=== PATIENT | female | born 1980 | race Caucasian/White ===

== ENCOUNTER 2017-03-24 04:14 | Day surgery (SDC) | payer BC ==
--- NOTE | ~2017-03-24 | OP ---
Record Of Operation [facility] [address] [place]. 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 POSTOPERATIVE DIAGNOSIS: C6-7 cord compression with left upper extremity severe radiculopathy. PROCEDURE: 1. C6-7 total disk replacement. 2. Use of the microscope. SURGEON: Maikol Lacey MD. FLUIDS: Approximately 1200 mL LR. ESTIMATED BLOOD LOSS: 10 mL. DRAIN: One drain. COMPLICATIONS: None. IMPLANTS: Medtronic. PREOPERATIVE HISTORY: This is a very friendly female who reports significant radiating pain into the left shoulder and down the arm consistent with radiculopathy. We discussed the pros and cons of surgery. We discussed the rates of success versus failure to decrease neck and arm pain respectively. She was with some neck pain, but predominantly radiculopathy. DESCRIPTION OF PROCEDURE: After informed consent was obtained, the patient was brought to the operating room at her request. General anesthesia achieved. She was placed in the supine position, and the neck was prepped and draped in a sterile fashion. The incision was then made and the retropharyngeal approach performed to C6-7. The subperiosteal exposure was completed at C6-7 and the proper level radiographically confirmed. The microscope was then brought into place, and under microscopic visualization, the diskectomy was performed and the endplates prepared with the curettes and the high-speed bur and the Kerrison rongeurs. Parallel endplates were then made according to the surgical technique for this Medtronic disk replacement. The rent was then identified in the posterior longitudinal ligament and the canal then explored and several large fragments of disk identified and removed. The cord and nerve roots were now well decompressed under microscopic visualization. Next, the Medtronic Prestige LP implant was then placed. This was done under fluoroscopic technique following the trialing under fluoroscopic guidance. Record Of Operation [facility] [address] [place]. [address] NAME: ALIYA FUNEZ : 78 STATUS : DIS Antonino PAT#: [id number] AGE: 36 ADM/REG DATE : 03/24/17 MR#: [id number] REPORT SERV DATE: 03/27/17 DICTATED BY: MAIKOL LACEY II DATE: 03/27/17 REPORT STATUS : Draft TRANSCRIBED BY: ROME DATE: 03/27/17 At this point, the device was well secured. Final imaging confirmed acceptable placement of the disk replacement system. Irrigation was performed followed by placement of a drain since she was staying overnight for observation. Standard closure was performed, and the patient was then extubated and transferred to PACU in stable condition. BARRIE/ROME Maikol Lacey II, M.D. / [id number] CC: Keisha Chu II, M.D.
[~2017-03-24 04:14] MED LIST: AUG500 PO; CELEXA10 PO; PERCOCET1 TA4 PO; PR12.5 PO; T PO
[2017-03-25] MEDS ORDERED: PCET PO ×2 (09:53→09:54)
[2017-03-25] MEDS ORDERED: V2 PO (09:53)
== END 2017-03-25 11:00 | disposition home or self-care (01) ==
LOC: SDC 04:14 → SDC/OF 08:17 → 1SO 13:11
PROVIDERS: Orthopaedic Surgery
PROC: 0RT30ZZ Resection of Cervical Vertebral Disc, Open Approach (ICD-10-PCS; 2017-03-24)
PROC: 0RU30JZ Supplement Cervical Vertebral Disc with Synthetic Substitute, Open Approach (ICD-10-PCS; 2017-03-24)
PROC: 00NW0ZZ Release Cervical Spinal Cord, Open Approach (ICD-10-PCS; principal; 2017-03-24 05:30)
PROC: 01N10ZZ Release Cervical Nerve, Open Approach (ICD-10-PCS; 2017-03-24 05:30)
DX: M50.023 Cervical disc disorder at C6-C7 level with myelopathy (principal); M54.12 Radiculopathy, cervical region; Z90.49 Acquired absence of other specified parts of digestive tract; Z90.89 Acquired absence of other organs; Z88.1 Allergy status to other antibiotic agents
CPT/HCPCS: 82962; 84703; 87641; 88304; 88311; 96374; 96375; 96376; A9270-GY; G0378; J0690; J1170; J2250; J2270; J2405; J2710; J3010